=== PATIENT | male | born 1970 | race Caucasian/White ===

== ENCOUNTER 2019-04-22 14:22 | Emergency (ER) | payer BC ==
[~2019-04-22] VITALS: Ht 185.4 cm; Wt 163.3 kg
--- OUTSIDE RECORDS SUMMARY | 2019-04-22 14:24 | XMS REPORT | Clinical Summary ---
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 Active omeprazole (PriLOSEC) 20 Take 20 mg by 0 MG capsule mouth. Active cholecalciferol, vitamin Take by 0 D3, (VITAMIN D3) 1,000 mouth. unit capsule Active icosapent ethyl (VASCEPA) Take 2 g by 120 capsule 5 1 gram mouth 2 (two) 8 capsuleIndications: times a day. Elevated triglycerides with high cholesterol 08/30/2019 Active lisinopril Take 1 tablet 30 tablet 11 (PRINIVIL,ZESTRIL) 20 mg (20 mg total) 8 tabletIndications: Benign by mouth hypertension daily. Active pen needle, diabetic (BD Use twice 100 each 11 ULTRA-FINE SHORT PEN daily to 8 NEEDLE) 31 gauge x 5/16" administer needle insulin Active insulin GLARGINE (TOUJEO Inject 60 8 Syringe 11 SOLOSTAR U-300 INSULIN) Units under 8 300 unit/mL (1.5 mL) the skin 2 insulin pen (two) times a day. Active naltrexone-bupropion 1 po bid 60 tablet 5 (CONTRAVE) 8-90 mg tablet 9 extended releaseIndications: Class 3 severe obesity due to excess calories with serious comorbidity and body mass index (BMI) of 45.0 to 49.9 in adult (HCC) Active fenofibrate micronized TAKE 1 30 capsule 11 02/08/201 (LOFIBRA) 200 MG CAPSULE(200 9 capsuleIndications: MG) BY MOUTH Hypercholesteremia DAILY BEFORE BREAKFAST Active glipiZIDE (GLUCOTROL) 10 TAKE 1 30 tablet 11 MG 24 hr TABLET(10 MG) 9 tabletIndications: BY MOUTH Uncontrolled type 2 EVERY DAY diabetes mellitus without complication, with long-term current use of insulin ([facility]) Active metFORMIN (GLUCOPHAGE) TAKE 1 60 tablet 11 1,000 mg TABLET(1000 9 tabletIndications: MG) BY MOUTH Uncontrolled type 2 TWICE DAILY diabetes mellitus without WITH MEALS complication, with AND WITH long-term current use of BREAKFAST AND insulin ([facility]) DINNER Active simvastatin (ZOCOR) 40 MG TAKE 1 TABLET 30 tablet tabletIndications: BY MOUTH 9 Hypercholesteremia EVERY NIGHT AT BEDTIME Active JARDIANCE 25 mg tablet TAKE 1 TABLET 30 tablet 11 BY MOUTH 9 DAILY Active dulaglutide (TRULICITY) INJECT 0.5 12 Syringe 1 1.5 mg/0.5 mL pen ML(1.5 MG) 9 injectorIndications: UNDER THE Uncontrolled type 2 SKIN ONCE diabetes mellitus without WEEKLY complication, with long-term current use of insulin ([facility]) 08/02/2018 Discontinued metFORMIN (GLUCOPHAGE) TAKE 1 60 tablet 1,000 mg TABLET(1000 7 tabletIndications: MG) BY MOUTH Diabetes mellitus type TWICE DAILY II, uncontrolled ([facility]) WITH MEALS( WITH BREAKFAST AND DINNER) 08/02/2018 Discontinued glipiZIDE (GLUCOTROL) 10 TAKE 1 30 tablet MG 24 hr TABLET(10 MG) 7 tabletIndications: BY MOUTH Hypercholesteremia EVERY DAY 08/02/2018 Discontinued JARDIANCE 25 mg TAKE 1 TABLET 30 tablet tabletIndications: BY MOUTH 7 Diabetes mellitus type EVERY DAY II, uncontrolled ([facility]) 05/28/2018 Discontinued lisinopril TAKE 1 30 tablet 11 (PRINIVIL,ZESTRIL) 30 mg TABLET(30 MG) 7 tabletIndications: Benign BY MOUTH hypertension EVERY DAY 09/01/2018 Discontinued BD INSULIN PEN NEEDLE UF USE 2 NEEDLES 100 each SHORT 31 gauge x 5/16" DAILY 7 needle DIRECTED 08/02/2018 Discontinued simvastatin (ZOCOR) 40 MG TAKE 1 TABLET 30 tablet 11 tabletIndications: BY MOUTH 7 Hypercholesteremia EVERY NIGHT AT BEDTIME 08/02/2018 Discontinued fenofibrate micronized Take 1 30 capsule 11 (LOFIBRA) 200 MG capsule capsule (200 7 mg total) by mouth daily before breakfast. 05/28/2018 Discontinued icosapent ethyl (VASCEPA) Take 2 g by 120 capsule 3 1 gram capsule mouth 2 (two) 8 times a day. 08/30/2018 Discontinued TRULICITY 1.5 mg/0.5 mL INJECT 1.5 2 mL 11 pen injector MG( 0.5 ML) 8 UNDER THE SKIN ONCE WEEKLY 08/30/2018 Discontinued insulin GLARGINE (TOUJEO 58 units BID 8 Syringe 11 SOLOSTAR U-300 INSULIN) subcut 8 300 unit/mL (1.5 mL) insulin penIndications: Uncontrolled type 2 diabetes mellitus without complication, with long-term current use of insulin (HCC) 08/30/2018 Discontinued lisinopril Take 1 tablet 30 tablet 11 (PRINIVIL,ZESTRIL) 20 mg (20 mg total) 8 tabletIndications: Benign by mouth hypertension daily. 07/13/2018 Discontinued icosapent ethyl (VASCEPA) Take 2 g by 120 capsule 11 1 gram mouth 2 (two) 8 capsuleIndications: times a day. Elevated triglycerides with high cholesterol 08/30/2018 Discontinued icosapent ethyl (VASCEPA) Take 2 g by 120 capsule 11 1 gram mouth 2 (two) 8 capsuleIndications: times a day. Elevated triglycerides with high cholesterol 07/26/2018 azithromycin (ZITHROMAX) Take 2 6 tablet 0 250 MG tablet tablets the 8 first day, then 1 tablet daily for 4 days. 08/30/2018 Discontinued metFORMIN (GLUCOPHAGE) TAKE 1 60 tablet 0 1,000 mg TABLET(1000 8 tabletIndications: MG) BY MOUTH Diabetes mellitus type TWICE DAILY II, uncontrolled (HCC) WITH MEALS AND WITH BREAKFAST AND DINNER 08/30/2018 Discontinued simvastatin (ZOCOR) 40 MG TAKE 1 TABLET 30 tablet 0 tabletIndications: BY MOUTH 8 Hypercholesteremia EVERY NIGHT AT BEDTIME 08/30/2018 Discontinued JARDIANCE 25 mg TAKE 1 TABLET 30 tablet 0 tabletIndications: BY MOUTH 8 Diabetes mellitus type EVERY DAY II, uncontrolled ([facility]) 08/30/2018 Discontinued glipiZIDE (GLUCOTROL) 10 TAKE 1 30 tablet 0 MG 24 hr TABLET(10 MG) 8 tabletIndications: BY MOUTH Hypercholesteremia EVERY DAY 08/30/2018 Discontinued fenofibrate micronized TAKE 1 30 capsule 0 (LOFIBRA) 200 MG capsule CAPSULE(200 8 MG) BY MOUTH DAILY BEFORE BREAKFAST 02/08/2019 Discontinued fenofibrate micronized TAKE 1 30 capsule 5 (LOFIBRA) 200 MG CAPSULE(200 8 capsuleIndications: MG) BY MOUTH Hypercholesteremia DAILY BEFORE BREAKFAST 02/08/2019 Discontinued glipiZIDE (GLUCOTROL) 10 TAKE 1 30 tablet 5 MG 24 hr TABLET(10 MG) 8 tabletIndications: BY MOUTH Uncontrolled type 2 EVERY DAY diabetes mellitus without complication, with long-term current use of insulin ([facility]) 02/22/2019 Discontinued empagliflozin (JARDIANCE) Take 1 tablet 30 tablet 5 25 mg tablet by mouth 8 daily. 02/08/2019 Discontinued metFORMIN (GLUCOPHAGE) TAKE 1 60 tablet 5 1,000 mg TABLET(1000 8 tabletIndications: MG) BY MOUTH Uncontrolled type 2 TWICE DAILY diabetes mellitus without WITH MEALS complication, with AND WITH long-term current use of BREAKFAST AND insulin ([facility]) DINNER 02/08/2019 Discontinued simvastatin (ZOCOR) 40 MG Take 1 tablet 30 tablet 5 tabletIndications: (40 mg total) 8 Hypercholesteremia by mouth nightly. 03/07/2019 Discontinued dulaglutide (TRULICITY) INJECT 1.5 2 mL 5 1.5 mg/0.5 mL pen MG( 0.5 ML) 8 injectorIndications: UNDER THE Uncontrolled type 2 SKIN ONCE diabetes mellitus without WEEKLY complication, with long-term current use of insulin ([facility]) 09/01/2018 Discontinued insulin glargine U-300 Inject 60 4 Syringe 11 conc (TOUJEO MAX U-300 Units under 8 SOLOSTAR) 300 unit/mL (3 the skin 2 mL) insulin (two) times a penIndications: day for 30 Uncontrolled type 2 days. diabetes mellitus without complication, with long-term current use of insulin ([facility]) 04/09/2019 Discontinued dulaglutide (TRULICITY) INJECT 0.5 2 mL 0 1.5 mg/0.5 mL pen ML(1.5 MG) 9 injectorIndications: UNDER THE Uncontrolled type 2 SKIN ONCE diabetes mellitus without WEEKLY complication, with long-term current use of insulin ([facility]) Active Problems Problem Noted Date Gouty arthropathy 05/12/2016 Adiposity 05/12/2016 Vitamin D deficiency 03/13/2016 Elevated serum alkaline phosphatase level 07/21/2014 Overview: Overview: Intestinal fraction increased and GGT increased consistent with fatty meal, or with blood types O or B Hypercalcemia 07/21/2014 Overview: Overview: 06/2014 ionized wnl History of gout 10/09/2013 Lateral epicondylitis 11/27/2012 Overview: Overview: injection Dr. Jessica Vargas Hypercholesteremia Benign hypertension Uncontrolled diabetes mellitus type 2 without complications Sleep apnea Encounters Care Team Description Date Type Specialty Lia Walters MD Uncontrolled type 2 diabetes mellitus without complication, with long-term current use of insulin ([facility]) 04/09/2019 Refill Internal Medicine Lia Walters MD Uncontrolled type 2 diabetes mellitus without complication, with long-term current use of insulin ([facility]) 03/07/2019 Refill Internal Lia Aponte MD 02/22/2019 Refill Internal Medicine Lia Walters MD Hypercholesteremia; Uncontrolled type 2 diabetes mellitus without complication, with long-term current use of insulin ([facility]) 02/08/2019 Refill Internal Medicine Lia Walters MD Annual physical exam (Primary Dx); Class 3 severe obesity due to excess calories with serious comorbidity and body mass index (BMI) of 45.0 to 49.9 in adult ([facility]); Hypercholesteremia; Obesity, Class III, BMI 40-49.9 (morbid obesity) ([facility]); Uncontrolled type 2 diabetes mellitus without complication, with long-term current use of insulin ([facility]); Benign hypertension; History of gout; Other sleep apnea; Screening PSA (prostate specific antigen) 01/31/2019 Office Visit Internal Medicine Lia Walters MD 09/01/2018 Orders Only Internal Medicine Lia Walters MD 09/01/2018 Refill Internal Medicine Lia Walters MD Uncontrolled type 2 diabetes mellitus without complication, with long-term current use of insulin (HCC) (Primary Dx); Hypercholesteremia; Elevated triglycerides with high cholesterol; Benign hypertension; Muscle pain; Hip pain, right; Obesity, Class III, BMI 40-49.9 (morbid obesity) (HCC); Flu vaccine need 08/30/2018 Office Visit Internal Medicine Lia Walters MD Diabetes mellitus type II, uncontrolled; Hypercholesteremia 08/02/2018 Refill Internal Medicine Lia Walters MD Morbid obesity with BMI of 45.0-49.9, adult (Primary Dx) 07/25/2018 Telephone Internal Medicine Lindsay Leon MA 07/20/2018 Telephone Internal Medicine Lindsay Leon MA Elevated triglycerides with high cholesterol 07/13/2018 Refill Internal Medicine Lia Walters MD Elevated triglycerides with high cholesterol (Primary Dx) 05/30/2018 Orders Only Internal Medicine Lia Walters MD Benign hypertension (Primary Dx); Uncontrolled type 2 diabetes mellitus without complication, with long-term current use of insulin; History of gout; Hypercholesteremia; Obesity, Class III, BMI 40-49.9 (morbid obesity) 05/28/2018 Office Visit Internal Medicine after 04/21/2018 Immunizations Name Dates Previously Given Next Due Hepatitis B 11/22/2017, 06/14/2017, 05/11/2017 INFLUENZA QUAD PF 08/30/2018, 08/16/2017, 09/21/2016 Influenza Trivalent 10/09/2013, 09/06/2012, 10/24/2011 Influenza Whole 08/27/2015, 11/01/2014 Pneumococcal 05/22/2015, 10/27/2009 Polysaccharide Tdap 12/12/2012 Family History Medical History Relation Name Comments Cancer Brother leukemia Diabetes Father Diabetes Mother Stroke Paternal Grandmother Relation Name Status Comments Brother Father Mother Paternal Grandmother Social History Date Tobacco Use Types Packs/Day Years Used Former Smoker Smokeless Tobacco: Former Quit: 07/11/2002 User Comments: 1.5 PPD quit Alcohol Use Drinks/Week oz/Week Comments Yes Occ Sex Assigned at Date Recorded Male 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 Last Filed Vital Signs Time Taken Vital Sign Reading 01/31/2019 1:38 PM PEDIATRIC RN Blood Pressure 115/70 01/31/2019 1:38 PM PEDIATRIC RN Pulse 104 01/31/2019 1:38 PM PEDIATRIC RN Temperature 36.8 C (98.3 F) - Respiratory Rate - 01/31/2019 1:38 PM PEDIATRIC RN Oxygen Saturation 96% - Inhaled Oxygen - Concentration 01/31/2019 1:38 PM PEDIATRIC RN Weight 164 kg (361 lb) 01/31/2019 1:38 PM PEDIATRIC RN Height 185.4 cm (6' 1") 01/31/2019 1:38 PM PEDIATRIC RN Body Mass Index 47.63 Plan of Treatment Care Team Description Date Type Specialty Lia Walters MD [address] [address] [phone] 05/01/2019 Office Visit Internal Medicine Health Maintenance Due Date Last Done Comments DIABETIC RETINAL EYE EXAM 1972 DIABETIC FOOT EXAM 11/22/2018 11/22/2017, 11/22/2017 URINE MICROALBUMIN 02/22/2019 02/22/2018, 11/22/2017, 11/22/2017, Additional history exists INFLUENZA VACCINE 06/27/2019 08/30/2018, 08/16/2017, 09/21/2016, Additional history exists Procedures Comments Procedure Name Priority Date/Time Associated Diagnosis ECG 12-LEAD Routine 01/31/2019 Annual physical exam 3:17 PM PEDIATRIC RN Benign hypertension URIC ACID LEVEL Routine 01/31/2019 Annual physical exam 2:32 PM PEDIATRIC RN History of gout PROSTATE SPECIFIC ANTIGEN Routine 01/31/2019 Annual physical exam 2:32 PM PEDIATRIC RN Screening PSA (prostate specific antigen) T4, FREE Routine 01/31/2019 Annual physical exam 2:32 PM PEDIATRIC RN THYROID STIMULATING Routine 01/31/2019 Annual physical exam HORMONE 2:32 PM PEDIATRIC RN LIPID PANEL Routine 01/31/2019 Annual physical exam 2:32 PM PEDIATRIC RN Hypercholesteremia C-PEPTIDE Routine 01/31/2019 Annual physical exam 2:32 PM PEDIATRIC RN Uncontrolled type 2 diabetes mellitus without complication, with long-term current use of insulin (HCC) HEMOGLOBIN A1C Routine 01/31/2019 Annual physical exam 2:32 PM PEDIATRIC RN Uncontrolled type 2 diabetes mellitus without complication, with long-term current use of insulin (HCC) CBC WITH PLATELET AND Routine 01/31/2019 Annual physical exam DIFFERENTIAL 2:32 PM PEDIATRIC RN COMPREHENSIVE METABOLIC Routine 01/31/2019 Annual physical exam PANEL 2:32 PM PEDIATRIC RN Hypercholesteremia Uncontrolled type 2 diabetes mellitus without complication, with long-term current use of insulin (HCC) Benign hypertension URINALYSIS, COMPLETE, Routine 01/31/2019 Annual physical exam WITH REFLEX TO CULTURE 2:32 PM PEDIATRIC RN LIPID PANEL Routine 08/30/2018 Hypercholesteremia 8:24 AM CDT Elevated triglycerides with high cholesterol HEMOGLOBIN A1C Routine 08/30/2018 Uncontrolled type 2 8:24 AM CDT diabetes mellitus without complication, with long-term current use of insulin (HCC) COMPREHENSIVE METABOLIC Routine 08/30/2018 Uncontrolled type 2 PANEL 8:24 AM CDT diabetes mellitus without complication, with long-term current use of insulin (HCC) Benign hypertension CREATINE KINASE, TOTAL Routine 08/30/2018 Muscle pain (CPK) 8:24 AM CDT URIC ACID LEVEL Routine 05/28/2018 History of gout 8:09 AM CDT LIPID PANEL Routine 05/28/2018 Hypercholesteremia 8:09 AM CDT HEMOGLOBIN A1C Routine 05/28/2018 Uncontrolled type 2 8:09 AM CDT diabetes mellitus without complication, with long-term current use of insulin COMPREHENSIVE METABOLIC Routine 05/28/2018 Uncontrolled type 2 PANEL 8:09 AM CDT diabetes mellitus without complication, with long-term current use of insulin Hypercholesteremia after 04/21/2018 Results * ECG 12 lead (01/31/2019 3:17 PM PEDIATRIC RN) Ventricular 104 [facility] rate Atrial rate 104 [facility] QRSD interval 96 [facility] QT interval 354 [facility] QTC interval 465 [facility] P axis 1 12 [facility] QRS axis 1 66 [facility] T wave axis 36 [facility] EKG impression Sinus tachycardia-Otherwise [facility] normal ECG-In automated comparison with ECG of 31-JAN-2019 15:16,-No significant change was found- Specimen Narrative Performed At Performing Organization Address City/State/Zipcode Phone Number [facility] [address] [place] [address] * URINALYSIS, COMPLETE, WITH REFLEX TO CULTURE (01/31/2019 2:32 PM PEDIATRIC RN) Color, UA YELLOW YELLOW [facility] [place] Appearance CLEAR CLEAR [facility] [place] Specific 1.036 (H) 1.001 - 1.035 [facility] gravity, urine [facility] [place] pH, urine 6.0 5.0 - 8.0 [facility] [place] Glucose, urine 3+ (A) NEGATIVE [facility] [place] Bilirubin, UA NEGATIVE NEGATIVE [facility] [place] Ketones, UA TRACE (A) NEGATIVE [facility] [place] Occult blood, NEGATIVE NEGATIVE [facility] [place] Protein, UA NEGATIVE NEGATIVE [facility] [place] Nitrite, UA NEGATIVE NEGATIVE [facility] [place] Leukocyte NEGATIVE NEGATIVE [facility] esterase, UA [facility] [place] WBC, UA NONE SEEN < OR=5 /HPF [facility] [place] RBC, UA NONE SEEN < OR=2 /HPF [facility] [place] Squamous NONE SEEN < OR=5 /HPF [facility] epithelial [facility]NOST[facility] cells, UA [place] Bacteria, UA NONE SEEN NONE SEEN /HPF [facility] [place] Hyaline casts, NONE SEEN NONE SEEN /LPF [facility] UA [facility] [place] Reflex NO CULTURE INDICATED [facility] [place] Specimen Resulting Agency Comment Performing Organization Information: Site ID: [id number] Name: [facility] Address: [address] [place] [phone] Director: Mirella Hope Performing Organization Address City/State/Zipcode Phone Number [facility] [place] [address] [place] [address] * C-peptide (01/31/2019 2:32 PM PEDIATRIC RN) [facility] C-peptide 4.43 (H) 0.80 - 3.85 ng/mL [facility] ING II Specimen Blood Resulting Agency Comment Performing Organization Information: Site ID: [id number] Name: [place] [employer] [facility] Address: [address] [place] [phone] Director: Dr. Issac Maldonado Performing Organization Address City/[facility]/Zipcode Phone Number [facility] [place] [address] II * CBC with platelet and differential (01/31/2019 2:32 PM PEDIATRIC RN) [facility] WBC 5.7 3.8 - 10.8 [facility] Thousand/uL [facility] [place] RBC 4.46 4.20 - 5.80 [facility] Million/uL [facility] [place] HGB 15.2 13.2 - 17.1 g/dL [facility] [place] HCT 43.7 38.5 - 50.0 % [facility] [place] MCV 98.0 80.0 - 100.0 fL [facility] [place] MCH 34.1 (H) 27.0 - 33.0 pg [facility] [place] MCHC 34.8 32.0 - 36.0 g/dL [facility] [place] RDW 13.1 11.0 - 15.0 % [facility] [place] Platelet count 295 140 - 400 [facility] Thousand/uL [facility] [place] MPV 9.4 7.5 - 12.5 fL [facility] [place] Neutrophils, 2,742 1,500 - 7,800 [facility] absolute cells/uL [facility] [place] Lymphocytes, 2,394 850 - 3,900 cells/uL [facility] absolute [facility] [place] Monocytes, 439 200 - 950 cells/uL [facility] absolute [facility] [place] Eosinophils, 97 15 - 500 cells/uL [facility] absolute [facility] [place] Basophils, 29 0 - 200 cells/uL [facility] absolute [facility] [place] Neutrophils 48.1 % [facility] [place] Lymphocytes 42.0 % [facility] [place] Monocytes 7.7 % [facility] [place] Eosinophils 1.7 % [facility] [place] Basophils + RC 0.5 % [facility] [place] Specimen Blood Resulting Agency Comment Performing Organization Information: Site ID: [id number] Name: [place] [employer] [facility] Address: [address] [place] [phone] Director: Mirella Hope Performing Organization Address [facility] Phone Number [employer] [place] [address] * Uric acid level (01/31/2019 2:32 PM PEDIATRIC RN) Only the most recent of 2 results within the time period is included. Uric acid 7.0 4.0 - 8.0 mg/dL [facility] Comment: DIAGNOSTICS Therapeutic target for gout [place] patients: <6.0 mg/dL Specimen Blood Resulting Agency Comment Performing Organization Information: Site ID: [id number] Name: [place] [employer] [facility] Address: [address] [place] [phone] Director: Mirella Hope Performing Organization Address [facility] Phone Number [employer] [place] [address] * Thyroid stimulating hormone (01/31/2019 2:32 PM PEDIATRIC RN) TSH 1.00 0.40 - 4.50 mIU/L [facility] [place] Specimen Blood Resulting Agency Comment Performing Organization Information: Site ID: [id number] Name: [place] [employer] [facility] Address: [address] [place] [phone] Director: Mirella Hope Performing Organization Address [facility] Phone Number [employer] [place] [phone] * T4, free (01/31/2019 2:32 PM PEDIATRIC RN) T4, free 1.1 0.8 - 1.8 ng/dL [facility] [place] Specimen Blood Resulting Agency Comment Performing Organization Information: Site ID: [id number] Name: [place] [employer] [facility] Address: [address] [place] [phone] Director: Mirella Hope Performing Organization Address [facility] Phone Number [employer] [address] [address] * Prostate specific antigen (01/31/2019 2:32 PM PEDIATRIC RN) PSA 0.3 < OR=4.0 ng/mL [facility] Comment: DIAGNOSTICS The total PSA value from this [place] assay system is standardized against the WHO standard. The test result will be approximately 20% lower when compared to the equimolar-standardized total PSA ([place] [facility]). Comparison of serial PSA results should be interpreted with this fact in mind. This test was performed using the Siemens chemiluminescent method. Values obtained from different assay methods cannot be used interchangeably. PSA levels, regardless of value, should not be interpreted as absolute evidence of the presence or absence of disease. Specimen Blood Resulting Agency Comment Performing Organization Information: Site ID: [id number] Name: [place] [employer] [facility] Address: [address] [place] [phone] Director: Mirella Hope Performing Organization Address City/[facility] Phone Number [employer] [place] [address] * Hemoglobin A1c (01/31/2019 2:32 PM PEDIATRIC RN) Only the most recent of 3 results within the time period is included. Hemoglobin A1C 10.0 (H) <5.7 % of total Hgb [facility] Comment: DIAGNOSTICS For someone without known [place] diabetes, a hemoglobin A1c value of 6.5% or greater indicates that they may have diabetes and this should be confirmed with a follow-up test. For someone with known diabetes, a value <7% indicates that their diabetes is well controlled and a value greater than or equal to 7% indicates suboptimal control. A1c targets should be individualized based on duration of diabetes, age, comorbid conditions, and other considerations. Currently, no consensus exists regarding use of hemoglobin A1c for diagnosis of diabetes for children. Specimen Blood Resulting Agency Comment Performing Organization Information: Site ID: [id number] Name: [place] [employer] [facility] Address: [address] [place] [phone] Director: Mirella Hope Performing Organization Address City/State/Zipcode Phone Number [employer] [place] [address] * Lipid panel (01/31/2019 2:32 PM PEDIATRIC RN) Only the most recent of 3 results within the time period is included. Cholesterol, 343 (H) <200 mg/dL [facility] total [facility] [place] HDL cholesterol 37 (L) >40 mg/dL [facility] [place] Triglycerides 865 (H) <150 mg/dL [facility] [place] LDL cholesterol Comment: mg/dL (calc) [facility] calculated LDL cholesterol not DIAGNOSTICS calculated. Triglyceride [place] levels greater than 400 mg/dL invalidate calculated LDL results. Reference range: <100 Desirable range <100 mg/dL for primary prevention; <70 mg/dL for patients with CHD or diabetic patients with > or=2 CHD risk factors. LDL-C is now calculated using the Panfilo-Pacheco calculation, which is a validated novel method providing better accuracy than the Friedewald equation in the estimation of LDL-C. Panfilo MITCHELL et al. CASSIE. 2013;310(19): 1814-9579 (http://education.FlyReadyJet/faq/HVP840) Cholesterol/HDL 9.3 (H) <5.0 (calc) [facility] [place] Non-HDL 306 (H) <130 mg/dL (calc) [facility] cholesterol Comment: DIAGNOSTICS Non-HDL level > nt=757 is very NELSON high and may indicate genetic familial hypercholesterolemia (FH). Clinical assessment and measurement of blood lipid levels should be considered for all first-degree relatives of patients with an FH diagnosis. For patients with diabetes plus 1 major ASCVD risk factor, treating to a non-HDL-C goal of <100 mg/dL (LDL-C of <70 mg/dL) is considered a therapeutic option. Specimen Blood Resulting Agency Comment Performing Organization Information: Site ID: [id number] Name: [employer] [facility] [facility] Address: [address] [place] [id number] Director: Mirella Hope Performing Organization Address City/State/Zipcode Phone Number [facility] [place] [phone] * Comprehensive metabolic panel (01/31/2019 2:32 PM PEDIATRIC RN) Only the most recent of 3 results within the time period is included. [facility] Glucose 109 (H) 65 - 99 mg/dL [facility] Comment: DI[facility]NOSTICS Fasting [place] reference interval For someone without known diabetes, a glucose value between 100 and 125 mg/dL is consistent with prediabetes and should be confirmed with a follow-up test. BUN, whole 17 7 - 25 mg/dL [facility] blood [facility] Creatinine 0.93 0.60 - 1.35 mg/dL [facility] [place] EGFR Non-Afr. 98 > OR=60 [facility] mL/min/1.73m2 [facility] [place] EGFR 114 > OR=60 [facility] Finnish mL/min/1.73m2 [facility] [place] BUN/creatinine NOT APPLICABLE 6 - 22 (calc) [facility] [place] Sodium 136 135 - 146 mmol/L [facility] [place] Potassium 4.1 3.5 - 5.3 mmol/L [facility] [place] Chloride 100 98 - 110 mmol/L [facility] [place] CO2 22 20 - 32 mmol/L [facility] [place] Calcium 10.3 8.6 - 10.3 mg/dL [facility] [place] Protein 7.7 6.1 - 8.1 g/dL [facility] [place] Albumin, S 4.4 3.6 - 5.1 g/dL [facility] [place] Globulin, total 3.3 1.9 - 3.7 g/dL [facility] (calc) [facility] [place] Albumin/globuli 1.3 1.0 - 2.5 (calc) [facility] [place] Total bilirubin 0.6 0.2 - 1.2 mg/dL [facility] [place] Alkaline 113 40 - 115 U/L [facility] phosphatase [facility] [place] AST 32 10 - 40 U/L [facility] [place] ALT 36 9 - 46 U/L [facility] [place] Specimen Blood Resulting Agency Comment Performing Organization Information: Site ID: [id number] Name: [place] [facility] [facility] Address: [address] [place] [id number] Director: Mirella Hope Performing Organization Address [facility] Phone Number [employer] [address] [phone] * Creatine kinase, total (CPK) (08/30/2018 8:24 AM CDT) Creatine kinase 124 44 - 196 U/L [facility] [place] Specimen Blood Resulting Agency Comment Performing Organization Information: Site ID: [id number] Name: [place] [facility] Address: [address] [place] [phone] Director: Mirella Hope Performing Organization Address [facility] Phone Number [employer] [address] [phone] after 04/21/2018 Insurance Type Payer Benefit Subscriber ID Effective Phone Address Plan / Dates Group PPO BCBS BCBS xxxxxxxxxxxx [id number] CHOICE resent PPO/FEDERA L EMPL PPO Advance Directives Patient has advance care planning documents on file. For more information, tha valdez contact: Omar Melton [address] [place] [address]
[2019-04-22] MEDS ORDERED: IBUPROFEN 400 MG TAB PO ONE (14:45)
[2019-04-22 15:25] LABS: BASOPHILS % 0.2 % (0.0-1.0); EOSINOPHILS # (AUTO) 0.1 (0.0-0.4); EOSINOPHILS % 1.6 % (0.0-6.0); HEMATOCRIT 38.4 % (38.2-49.6); LYMPHOCYTES # (AUTO) 1.9 (1.0-3.2); LYMPHOCYTES % 38.8 % (18.0-39.1); MEAN CORPUSCULAR HEMOGLOBIN 34.4 pg (28-32); MEAN CORPUSCULAR HGB CONC 33.9 g/dL (31-35); MEAN CORPUSCULAR VOLUME 101.6 fL (81-99); MONOCYTES # (AUTO) 0.4 (0.2-0.8); MONOCYTES % 8.9 % (4.4-11.3); NEUTROPHILS # (AUTO) 2.5 (2.1-6.9); NEUTROPHILS % 50.5 % (38.7-80.0); PLATELET COUNT 251 x10e3/uL (140-360); RED BLOOD COUNT 3.78 x10e6/uL (4.3-5.7); RED CELL DISTRIBUTION WIDTH 13.5 % (11.7-14.4)
[2019-04-22 15:32] LABS: INR 0.86; PROTHROMBIN TIME 12.2 seconds (11.9-14.5)
[2019-04-22 15:33] LABS: PARTIAL THROMBOPLASTIN TIME 26.7 seconds (23.8-35.5)
[2019-04-22 15:41] LABS: ALANINE AMINOTRANSFERASE 38 IU/L (0-55); ALBUMIN 3.6 g/dL (3.5-5.0); ALKALINE PHOSPHATASE 126 IU/L (40-150); BLOOD UREA NITROGEN 17 mg/dL (7-26); BUN/CREATININE RATIO 16 (6-25); CALCIUM 10.5 mg/dL (8.4-10.2); CARBON DIOXIDE 23 mmol/L (22-29); CHLORIDE 102 mmol/L (98-107); CREATININE, SERUM 1.09 mg/dL (0.72-1.25); EST GLOMERULAR FILTRATION RATE > 60 ML/MIN (60-); GLUCOSE 243 mg/dL (74-118); SODIUM 137 mmol/L (136-145)
--- NOTE | 2019-04-22 15:58 | Diagnostic Imaging Report ---
KNEE LEFT THREE VIEWS - 3 views HISTORY: Pain. Left knee pain. Patient was climbing a ladder and felt the knee pop. Pain in the back of the knee. COMPARISON: None available. FINDINGS: Bones: No acute displaced fracture. Osseous alignment is within normal limits. Patellar enthesophyte at the quadriceps tendon insertion. Joints: The joint spaces are well-maintained. Soft tissues: The soft tissues appear unremarkable. IMPRESSION: No acute radiographic abnormality. Signed by: Dr. Hayes Rivera M.D. on 04/22/2019 3:55 PM
== END 2019-04-22 17:23 | disposition home or self-care (01) ==
LOC: ER 14:22
DX: S83.522A Sprain of posterior cruciate ligament of left knee, initial encounter (principal); Z88.0 Allergy status to penicillin; I10 Essential (primary) hypertension; E11.9 Type 2 diabetes mellitus without complications; E78.5 Hyperlipidemia, unspecified; Z83.3 Family history of diabetes mellitus; Z82.49 Family history of ischemic heart disease and other diseases of the circulatory system
CPT/HCPCS: 36415; 80053; 85025; 85610; 85730; 93971; 99284